=== PATIENT | male | born 1960 | race Caucasian/White ===

== ENCOUNTER → 2016-07-07 | Outpatient (CLI) | payer OTHER | END | disposition home or self-care (01) | LOC: RESP 12:51 | PROVIDERS: ATTEND Internal Medicine Pulmonary Disease | DX: J44.9 Chronic obstructive pulmonary disease, unspecified (principal) | CPT/HCPCS: 71020; 94060 ==

== ENCOUNTER 2022-08-15 09:48 | Emergency (ER) | payer OTHER ==
[~2022-08-15] VITALS: Ht 167.6 cm; Wt 122.7 kg
[2022-08-15] MEDS ORDERED: METF-1211 PO (10:30)
[2022-08-15] MEDS ORDERED: HYDR-4527 PO (10:30)
[2022-08-15] MEDS ORDERED: ASPI81TA87 PO (10:30)
[2022-08-15] MEDS ORDERED: LOVA20TA73 PO (10:30)
[2022-08-15] MEDS ORDERED: BUPR-72 PO (10:30)
[2022-08-15] MEDS ORDERED: FURO-151 PO (10:30)
[2022-08-15] MEDS ORDERED: SERT-162 PO (10:30)
[2022-08-15] MEDS ORDERED: AMIT25TA10 PO (10:30)
[2022-08-15] MEDS ORDERED: DULA1.5P SQ (10:30)
[2022-08-15] MEDS ORDERED: LORA10TA7 PO (10:30)
[2022-08-15] MEDS ORDERED: PROP40TA7 PO (10:30)
[2022-08-15] MEDS ORDERED: FINA-27 PO (10:30)
[2022-08-15] MEDS ORDERED: CYCL-448 PO (10:30)
[2022-08-15] MEDS ORDERED: FLUTICASONE NASAL (10:30)
[2022-08-15 12:19] LABS: BASOPHILS % (AUTO) 0.7 % (0.0-2.0); EOSINOPHILS % (AUTO) 2.6 % (1.0-6.0); HEMATOCRIT 47.6 % (41-53); HEMOGLOBIN 15.8 g/dL (13.5-17.5); LYMPHOCYTES # (AUTO) 1.5 K/uL (1.0-4.8); LYMPHOCYTES % (AUTO) 15.5 % (22.0-44.0); MEAN CORPUSCULAR HEMOGLOBIN 29.4 pg (26.0-34.0); MEAN CORPUSCULAR HGB CONC 33.1 G/dL (31.0-37.0); MEAN CORPUSCULAR VOLUME 89 fL (80-100); MONOCYTES # (AUTO) 1.3 K/uL (0.1-1.0); MONOCYTES % (AUTO) 13.5 % (2.0-9.0); NEUTROPHILS # (AUTO) 6.7 K/uL (1.8-7.7); NEUTROPHILS % (AUTO) 67.7 % (40.0-70.0); PLATELET COUNT (AUTO) 420 K/uL (150-450); RED BLOOD CELL COUNT(AUTO) 5.36 MIL/uL (4.50-5.90); RED CELL DISTRIBUTION WIDTH 14.2 % (11.5-14.5)
[2022-08-15 12:33] LABS: ANION GAP 9 mmol/L (8-16); CALCIUM, TOTAL 9.5 mg/dL (8.8-10.5); CARBON DIOXIDE 32 mmol/L (22-29); CHLORIDE 99 mmol/L (98-107); CREATININE 1.04 mg/dL (0.60-1.30); GLOMERULAR FILTR. RATE CALC > 60 mL/min (>60); GLUCOSE,RANDOM 107 mg/dL (70-110); POTASSIUM 4.3 mmol/L (3.5-5.1); SODIUM SERUM 140 mmol/L (136-145)
[2022-08-15 12:38] LABS: ALANINE AMINOTRANSFERASE 39 U/L (12-78); ALKALINE PHOSPHATASE 93 U/L (46-116); ASPARTATE AMINOTRANSFERASE 25 U/L (15-37); BILIRUBIN,TOTAL 0.6 mg/dL (0.1-1.0); TOTAL PROTEIN, SERUM 8.9 g/dL (6.4-8.2)
[2022-08-15 12:39] LABS: B-TYPE NATRIURETIC PEPTIDE < 5 pg/mL (0-100)
[2022-08-15 14:39] VITALS: BP 142/86
== END 2022-08-15 14:57 | disposition home or self-care (01) ==
LOC: EMS 09:48
DX: R60.0 Localized edema (principal); E11.9 Type 2 diabetes mellitus without complications
CPT/HCPCS: 80053; 83880; 85025; 85379; 93971; 99284